=== PATIENT | female | born 1990 | race Hispanic/Latino ===

== ENCOUNTER 2022-05-30 22:23 | Emergency (ER) | payer BC ==
[2022-05-31] MEDS ORDERED: Morphine 4 MG/ML VIAL ONE (04:03)
[2022-05-31] MEDS ORDERED: Ondansetron PF 4 MG/2 ML Vial ONE (04:03)
== END 2022-05-31 00:36 | disposition left against medical advice (07) ==
LOC: CSHERS 22:23
DX: R42 Dizziness and giddiness (principal)
CPT/HCPCS: J2270; J2405